=== PATIENT | female | born 1965 ===

== ENCOUNTER 2016-08-23 21:50 | Emergency (ER) | payer MEDICAID ==
[2016-08-23 22:03] VITALS: BP 153/85; PULSE 89; RESP 20; TEMP 98.3; O2SAT 98
--- NOTE | 2016-08-23 23:09 | ED PDOC ---
Upper Extremity Pain/Injury Time Seen by Provider: 08/23/16 22:08 Chief Complaint (Nursing): Upper Extremity Problem/Injury Chief Complaint (Provider): shoulder pain History Per: Patient History/Exam Limitations: no limitations Additional Complaint(s): 51yo F in ED for eval of right shoulder pain x 1 week was seen at [place] told she has calcification to shoulder and advised to f.u [facility] pmd. she was seen at pmd suggested motrin for pain. but states nothing has worked to help alleviate pain. pt admits o pain with ROM and radiation of pain to neck. no numbness,or weakness to shoulder. Past Medical History Reviewed: Historical Data, Nursing Documentation, Vital Signs Vital Signs: Last Vital Signs Temp 98.3 F 08/23/16 22:01 Pulse 89 08/23/16 22:01 Resp 20 08/23/16 22:01 BP 153/85 H 08/23/16 22:01 Pulse Ox 98 08/23/16 22:01 - Medical History PMH: No Chronic Diseases - Family History Family History: States: No Known Family Hx - Home Medications Home Medications: Ambulatory Orders Medication Instructions Recorded Cyclobenzaprine [Cyclobenzaprine 10 mg PO BID #14 tab 08/23/16 HCl] Lidocaine 5% [Lidoderm] 1 each TP DAILY #5 patch 08/23/16 Naproxen [Naprosyn] 500 mg PO BID #30 tab 08/23/16 - Allergies Allergies/Adverse Reactions: Allergies Allergy/AdvReac Type Severity Reaction Status Date / Time acetaminophen [From Percocet] Allergy VOMITING Verified 08/23/16 22:03 oxycodone [From Percocet] Allergy VOMITING Verified 08/23/16 22:03 Review of Systems ROS Statement: Except As Marked, All Systems Reviewed And Found Negative Musculoskeletal: Positive for: Shoulder Pain Physical Exam - Reviewed Nursing Documentation Reviewed: Yes Vital Signs Reviewed: Yes - Physical Exam Appears: Positive for: Well, Non-toxic, No Acute Distress Head Exam: Positive for: ATRAUMATIC, NORMAL INSPECTION, NORMOCEPHALIC Cardiovascular/Chest: Positive for: Regular Rate, Rhythm Respiratory: Positive for: CNT, Normal Breath Sounds Gastrointestinal/Abdominal: Positive for: Soft Extremity: Positive for: Normal ROM, Other Neurologic/Psych: Positive for: Alert, Oriented - ECG O2 Sat by Pulse Oximetry: 98 - Radiology X-Ray: Interpreted by Tn X-Ray Interpretation: Other (calification noted to humeral head ? alvusion fx ) - Progress ED Course And Treament: shoulder pain Medical Decision Making Medical Decision Making: Pt will get shoulder harness with swath. givne torodol Im for pain. advised to f /u with ortho and Rx naproxen for pain and lidoderm fpor tropical Disposition - Clinical Impression Clinical Impression: Shoulder pain - Patient ED Disposition Is Patient to be Admitted: No Counseled Patient/Family Regarding: Studies Performed, Diagnosis, Need For Followup, Rx Given - Disposition Referrals: [facility] [Outside] [facility] [Outside] Disposition: Routine/Home Disposition Time: 23:12 Condition: STABLE Prescriptions: Cyclobenzaprine [Cyclobenzaprine HCl] 10 mg PO BID #14 tab Lidocaine 5% [Lidoderm] 1 each TP DAILY #5 patch Naproxen [Naprosyn] 500 mg PO BID #30 tab Instructions: Shoulder Pain (ED)
--- NOTE | 2016-08-24 13:42 | RAD ---
PROCEDURE: Radiographs of the Right Shoulder HISTORY: Shoulder injury. COMPARISON: No prior. FINDINGS: BONES: Normal. No fracture. JOINTS: Minor degenerative changes right acromioclavicular joint. SOFT TISSUES: Small elliptical shaped calcifications adjacent to the greater tuberosity within the soft tissues adjacent to the greater tuberosity consistent with calcific tendinitis or bursitis. . OTHER FINDINGS: None. IMPRESSION: No evidence of acute displaced fracture nor dislocation. Minor degenerative changes right acromioclavicular joint. Findings consistent with calcific tendinitis or bursitis.
== END 2016-08-23 23:25 | disposition home or self-care (01) ==
LOC: H.ER 21:50
DX: M25.511 Pain in right shoulder (principal)

== ENCOUNTER 2016-11-03 20:20 | Emergency (ER) | payer SELFPAY ==
[2016-11-03 20:59] VITALS: BP 133/79; PULSE 84; RESP 16; TEMP 98; O2SAT 99
--- NOTE | 2016-11-03 21:25 | ED PDOC ---
Lower Extremity Pain/Injury Time Seen by Provider: 11/03/16 21:06 Chief Complaint (Nursing): Lower Extremity Problem/Injury Chief Complaint (Provider): Rt great toe injury History Per: Patient History/Exam Limitations: no limitations Onset/Duration Of Symptoms: Mins Current Symptoms Are (Timing): Still Present Additional History Per: Patient Additional Complaint(s): The patient is a 51yo female, no known past medical history, presents to the ED for evaluation of injury to her right great toe. Patient reports a desk fell and crushed her right great toe resulting in pain and swelling to the area. She states she took Ibuprofen 600 mg for the pain with minimal relief. Patient currently offers no additional medical complaints. - Ankle/Foot Description Of Injury: Struck With Object Past Medical History Reviewed: Historical Data, Nursing Documentation, Vital Signs Vital Signs: Last Vital Signs Temp 98.0 F 11/03/16 20:57 Pulse 84 11/03/16 20:57 Resp 16 11/03/16 20:57 BP 133/79 11/03/16 20:57 Pulse Ox 99 11/03/16 20:57 - Medical History PMH: No Chronic Diseases - Surgical History Surgical History: No Surg Hx - Family History Family History: States: Unknown Family Hx - Home Medications Home Medications: Ambulatory Orders Medication Instructions Recorded Cyclobenzaprine [Cyclobenzaprine 10 mg PO BID #14 tab 08/23/16 HCl] Lidocaine 5% [Lidoderm] 1 each TP DAILY #5 patch 08/23/16 Naproxen [Naprosyn] 500 mg PO BID #30 tab 08/23/16 traMADol [Ultram] 50 mg PO Q6H PRN #15 tab 11/03/16 - Allergies Allergies/Adverse Reactions: Allergies Allergy/AdvReac Type Severity Reaction Status Date / Time No Known Allergies Allergy Verified 11/03/16 20:55 Review of Systems ROS Statement: Except As Marked, All Systems Reviewed And Found Negative Musculoskeletal: Positive for: Foot Pain (right great toe injury) Physical Exam - Reviewed Nursing Documentation Reviewed: Yes Vital Signs Reviewed: Yes - Physical Exam Appears: Positive for: Well, Non-toxic, No Acute Distress Head Exam: Positive for: ATRAUMATIC, NORMAL INSPECTION, NORMOCEPHALIC Skin: Positive for: Normal Color Eye Exam: Positive for: Normal appearance Neck: Positive for: Normal, Supple Cardiovascular/Chest: Positive for: Regular Rate, Rhythm Respiratory: Negative for: Decreased Breath Sounds, Respiratory Distress Pulses-Dorsalis Pedis (L): 2+ Pulses-Dorsalis Pedis (R): 2+ Extremity: Positive for: Normal ROM, Tenderness (tenderness, edema and ecchymosis to distal right great toe), Swelling. Negative for: Deformity Neurologic/Psych: Positive for: Alert, Oriented. Negative for: Motor/Sensory Deficits - ECG O2 Sat by Pulse Oximetry: 99 (RA) Pulse Ox Interpretation: Normal Medical Decision Making Medical Decision Making: Time: 2114 Impression: Rt great toe injury r/o fractures Plan: -- Tramadol 50 mg PO -- XR Right foot Reassess (+) distal phalanx fracture of the great toe. Surgical shoe, crutches and f/u with podiatry Scribe Attestation: Documented by Arabella Choudhury acting as a scribe for NIGEL Walters Provider Attestation: All medical record entries made by the Scribe were at my direction and personally dictated by me. I have reviewed the chart and agree that the record accurately reflects my personal performance of the history, physical exam, medical decision making, and the department course for this patient. I have also personally directed, reviewed, and agree with the discharge instructions and disposition. Disposition - Clinical Impression Clinical Impression: Toe fracture - Patient ED Disposition Is Patient to be Admitted: No Counseled Patient/Family Regarding: Diagnosis, Need For Followup, Rx Given - Disposition Referrals: Podiatry Clinic [Outside] Disposition: Routine/Home Disposition Time: 22:23 Condition: GOOD Prescriptions: traMADol [Ultram] 50 mg PO Q6H PRN #15 tab PRN Reason: Pain Instructions: Toe Fracture (ED) Forms: [employer] (Turkish)
--- NOTE | 2016-11-04 09:45 | RAD ---
PROCEDURE: Radiographs of the right great toe. TECHNIQUE:: AP radiograph of the right foot, with oblique and lateral view of the right great toe. COMPARISON: None. FINDINGS: BONES: Comminuted fracture of the distal phalanx right great toe with surrounding soft tissue swelling. . . Multiple tiny radiopaque densities seen along the surface of the toenail. . 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 SOFT TISSUES: As above. OTHER FINDINGS: None. IMPRESSION: Comminuted fracture distal phalanx right great toe with surrounding soft tissue swelling. 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
== END 2016-11-03 22:35 | disposition home or self-care (01) ==
LOC: H.ER 20:20
DX: S92.411A Displaced fracture of proximal phalanx of right great toe, initial encounter for closed fracture (principal); W22.8XXA Striking against or struck by other objects, initial encounter; Y92.89 Other specified places as the place of occurrence of the external cause